=== PATIENT | female | born 1945 | race Caucasian/White ===

== ENCOUNTER 2022-06-29 06:53 | Day surgery (SDC) | payer OTHER, MEDICARE ==
[2022-06-22 11:28] VITALS: BMI 25.2
[2022-06-29 07:14] VITALS: RESP 18
[2022-06-29] MEDS ORDERED: PROPOFOL 120 ML ONE (07:56)
[2022-06-29] MEDS ORDERED: LIDOCAINE HCL/PF 2% SDV 5ML VIAL ONE (07:56)
[2022-06-29 09:17] VITALS: TEMP 97
[2022-06-29 09:35] VITALS: BP 110/70; PULSE 64
== END 2022-06-29 09:49 | disposition home or self-care (01) ==
LOC: FASU-ENDO 06:53
PROVIDERS: ATTEND Internal Medicine Gastroenterology
PROC: 0DBL8ZX Excision of Transverse Colon, Via Natural or Artificial Opening Endoscopic, Diagnostic (ICD-10-PCS; 2022-06-29)
PROC: 0DBK8ZX Excision of Ascending Colon, Via Natural or Artificial Opening Endoscopic, Diagnostic (ICD-10-PCS; principal; 2022-06-29 08:43)
DX: Z12.11 Encounter for screening for malignant neoplasm of colon (principal); D12.2 Benign neoplasm of ascending colon; D12.3 Benign neoplasm of transverse colon; R19.5 Other fecal abnormalities; K64.1 Second degree hemorrhoids
CPT/HCPCS: 88305-TC